=== PATIENT | male | born 1950 | race African-American/Black ===

== ENCOUNTER 2018-01-30 13:15 | Emergency (ER) | payer MEDICARE, OTHER ==
[~2018-01-30] VITALS: Ht 177.8 cm; Wt 60.0 kg
[2018-01-30] MEDS ORDERED: EPINEPHrine 1:10,000 [1 MG/10 ML] SYRINGE IVP ONE (13:19)
[2018-01-30] MEDS ORDERED: SODIUM BICARBONATE [ADULT] 8.4% 50 MEQ/50 ML SYRINGE IVP ONE (13:19)
[2018-01-30 13:30] VITALS: BP 0/0
== END 2018-01-30 15:52 | disposition expired ==
LOC: EMS 13:18 → EDBD 13:18 → EMS 15:52
DX: I46.9 Cardiac arrest, cause unspecified (principal)
CPT/HCPCS: 31500; 92950; 99291; J0171; J3490